=== PATIENT | female | born 1980 | race Caucasian/White ===

== ENCOUNTER → 2016-05-30 | Outpatient (CLI) | payer OTHER | END | disposition home or self-care (01) | LOC: C.LAB 15:33 | PROVIDERS: ATTEND Obstetrics & Gynecology | DX: Z32.00 Encounter for pregnancy test, result unknown (principal) ==

== ENCOUNTER → 2016-06-04 | Outpatient (CLI) | payer OTHER | END | disposition home or self-care (01) | LOC: C.LAB 07:54 | PROVIDERS: ATTEND Obstetrics & Gynecology | DX: O20.0 Threatened abortion (principal); Z3A.00 Weeks of gestation of pregnancy not specified ==

== ENCOUNTER → 2016-06-06 | Outpatient (CLI) | payer OTHER | END | disposition home or self-care (01) | LOC: C.LAB 07:51 | PROVIDERS: ATTEND Obstetrics & Gynecology | DX: O20.0 Threatened abortion (principal) ==

== ENCOUNTER → 2016-07-01 | Outpatient (CLI) | payer OTHER ==
[~2016-07-01] MED LIST: IBUP-1050 PO; PRENTAB26 PO
== END | disposition home or self-care (01) ==
LOC: C.LABPVFM 11:44
PROVIDERS: ATTEND Obstetrics & Gynecology
DX: O20.0 Threatened abortion (principal)

== ENCOUNTER → 2016-07-17 | Outpatient (CLI) | payer OTHER | END | disposition home or self-care (01) | LOC: C.LAB 10:04 | PROVIDERS: ATTEND Obstetrics & Gynecology | DX: N92.6 Irregular menstruation, unspecified (principal) ==

== ENCOUNTER → 2016-07-19 | Outpatient (CLI) | payer OTHER | END | disposition home or self-care (01) | LOC: C.LAB 11:28 | PROVIDERS: ATTEND Obstetrics & Gynecology | DX: O02.81 Inappropriate change in quantitative human chorionic gonadotropin (hCG) in early pregnancy (principal); Z3A.00 Weeks of gestation of pregnancy not specified ==

== ENCOUNTER → 2016-07-26 | Outpatient (CLI) | payer OTHER | END | disposition home or self-care (01) | LOC: C.LABBFT 07:54 | PROVIDERS: ATTEND Obstetrics & Gynecology | DX: O02.81 Inappropriate change in quantitative human chorionic gonadotropin (hCG) in early pregnancy (principal) ==

== ENCOUNTER → 2016-08-01 | Outpatient (CLI) | payer OTHER | END | disposition home or self-care (01) | LOC: C.LAB 07:51 | PROVIDERS: ATTEND Obstetrics & Gynecology | DX: O09.299 Supervision of pregnancy with other poor reproductive or obstetric history, unspecified trimester (principal); Z3A.00 Weeks of gestation of pregnancy not specified ==

== ENCOUNTER → 2016-08-05 | Outpatient (CLI) | payer OTHER | END | disposition home or self-care (01) | LOC: C.LAB 08:16 | PROVIDERS: ATTEND Obstetrics & Gynecology | DX: O09.299 Supervision of pregnancy with other poor reproductive or obstetric history, unspecified trimester (principal); Z3A.00 Weeks of gestation of pregnancy not specified ==

== ENCOUNTER → 2016-08-08 | Outpatient (CLI) | payer OTHER ==
[2016-08-08 17:39] LABS: BASO % 0.4 %; BASO ABS # 0.04 K/uL (0-0.2); COMPLETE YES; EOS % 1.8 %; HEMATOCRIT 40.2 % (37-47); IG% 0.1 %; LYMPH % 32.3 %; LYMPH ABS # 3.31 K/uL (1.2-3.4); MEAN CELL VOLUME 91.6 fL (80-100); MEAN CORPUSCULAR HEMOGLOBIN 30.5 pg (25-34); MEAN CORPUSCULAR HGB CONC 33.3 g/dl (32-36); MEAN PLATELET VOLUME 10.9 fL (7.4-10.4); MONO % 8.1 %; NEUT % 57.3 %; PLATELET COUNT 312 K/uL (130-400); RED BLOOD COUNT 4.39 M/uL (4.2-5.4); WHITE BLOOD COUNT 10.26 K/uL (4.8-10.8)
[2016-08-08 18:01] LABS: ALT/SGPT 21 U/L (12-78); BLOOD UREA NITROGEN 13 mg/dl (7-18); CREATININE 0.82 mg/dl (0.60-1.20)
[2016-08-08 18:03] LABS: ALKALINE PHOSPHATASE 89 U/L (45-117); AST/SGOT 12 U/L (15-37)
== END | disposition home or self-care (01) ==
LOC: C.LAB1850 16:45
PROVIDERS: ATTEND Obstetrics & Gynecology
DX: O00.90 Unspecified ectopic pregnancy without intrauterine pregnancy (principal)

== ENCOUNTER → 2016-08-13 | Outpatient (CLI) | payer OTHER | END | disposition home or self-care (01) | LOC: C.LAB 08:05 | PROVIDERS: ATTEND Obstetrics & Gynecology | DX: O00.90 Unspecified ectopic pregnancy without intrauterine pregnancy (principal) ==

== ENCOUNTER → 2016-08-16 | Outpatient (CLI) | payer OTHER | END | disposition home or self-care (01) | LOC: C.LAB 07:53 | PROVIDERS: ATTEND Obstetrics & Gynecology | DX: O00.90 Unspecified ectopic pregnancy without intrauterine pregnancy (principal) ==

== ENCOUNTER → 2016-08-23 | Outpatient (CLI) | payer OTHER ==
[2016-08-23 10:01] LABS: BASO % 0.4 %; BASO ABS # 0.03 K/uL (0-0.2); COMPLETE YES; EOS % 2.6 %; HEMATOCRIT 40.7 % (37-47); IG% 0.3 %; LYMPH ABS # 2.53 K/uL (1.2-3.4); MEAN CELL VOLUME 93.3 fL (80-100); MEAN CORPUSCULAR HGB CONC 32.2 g/dl (32-36); MEAN PLATELET VOLUME 10.9 fL (7.4-10.4); NEUT % 52.7 %; PLATELET COUNT 292 K/uL (130-400); RED BLOOD COUNT 4.36 M/uL (4.2-5.4); WHITE BLOOD COUNT 7.02 K/uL (4.8-10.8)
[2016-08-23 10:10] LABS: ALT/SGPT 37 U/L (12-78); BLOOD UREA NITROGEN 13 mg/dl (7-18)
[2016-08-23 10:13] LABS: ALKALINE PHOSPHATASE 85 U/L (45-117); AST/SGOT 17 U/L (15-37)
== END | disposition home or self-care (01) ==
LOC: C.LAB 07:50
PROVIDERS: ATTEND Obstetrics & Gynecology
DX: O00.90 Unspecified ectopic pregnancy without intrauterine pregnancy (principal)

== ENCOUNTER → 2016-08-30 | Outpatient (CLI) | payer OTHER | END | disposition home or self-care (01) | LOC: C.LAB 07:55 | PROVIDERS: ATTEND Obstetrics & Gynecology | DX: O00.90 Unspecified ectopic pregnancy without intrauterine pregnancy (principal) ==

== ENCOUNTER → 2016-11-06 | Outpatient (CLI) | payer OTHER ==
--- NOTE | 2016-11-06 11:34 | HISTORY & PHYSICAL EXAMINATION ---
DATE OF ADMISSION: 11/06/2016 PREOPERATIVE DIAGNOSIS: Secondary infertility, status post ectopic . POSTOPERATIVE DIAGNOSES: Same plus bilateral fallopian tube spill plus uterine synechiae. SURGEON: Edd Mackey MD INDICATIONS: The patient is a 36-year-old G2, P1 female with a history of a traumatic D and E and ectopic treated with methotrexate. FINDINGS: External genitalia, normal. Cervix large ____ with a tear extending 2 cm cephalad at 11:00. Normal fill and spill of the fallopian tubes. Uterine synechiae partially obscuring the left cornua. COMPLICATIONS: None. The patient tolerated the procedure well. See formal radiology.
--- NOTE | 2016-11-06 11:54 | DIAGNOSTIC IMAGING REPORT ---
HYSTEROSALPINGOGRAM CLINICAL HISTORY: 36 years-old Female with FERTILITY, HX OF ETOPIC "DR SMITH TO DO*. FLUOROSCOPY TIME: 0.7 minutes. 5 images. TECHNIQUE: Hysterosalpingogram performed in conjunction with the [employer] department. Radiology was present to provide fluoroscopy. FINDINGS: The endometrial canal appears normal in size and morphology. There is a small focal contour abnormality/filling defect in the region of the left uterine horn which persists on all the images. No additional endometrial contour abnormalities or filling defects. There is opacficiation of the fallopian tubes with bilateral spillage into the peritoneal cavity. IMPRESSION: 1. Focal small nonspecific filling defect of the left uterine horn persists on all of the images and could be correlated with pelvic ultrasound and/or sonohysterography. 2. There is contrast spillage into the peritoneum bilaterally confirming bilateral fallopian tube patency. The above report was generated using voice recognition software. It may contain grammatical, syntax or spelling errors. Electronically signed by: Nir Meza M.D. 11/06/2016 11:52 AM Dictated Date/Time: 11/06/2016 11:49 AM
--- NOTE | 2016-11-19 09:18 | OPERATIVE REPORT ---
DATE OF OPERATION: 11/06/2016 PREOPERATIVE DIAGNOSIS: Secondary infertility. POSTOPERATIVE DIAGNOSIS: Same plus Asherman syndrome. PROCEDURE PERFORMED: Hystersalpingogram. SURGEON: Edd Gonzales. ANESTHESIOLOGIST: Jose Daniel Meza D.O. INDICATIONS FOR PROCEDURE: The patient is a 36-year-old white G2, P0 female with a history of recent ectopic and a history of a traumatic D&E. FINDINGS: BUS and external genitalia normal. Cervix appears parous with a laceration at 10:00 that is well healed. On instillation of the dye the uterus filled easily. Both tubes filled and spilled. The region of the ectopic on the right side shows no filling defect. However, there is a consistent focal defect in the left cornual area consistent with synechiae. This is the [id number] time I have dictated and signed this report I attest to the content of the Intraoperative Record and any orders documented therein. Any exceptions are noted below. MTDD
== END | disposition home or self-care (01) ==
LOC: C.RAD 10:13
PROVIDERS: ATTEND Obstetrics & Gynecology
DX: Z31.41 Encounter for fertility testing (principal)

== ENCOUNTER → 2017-01-29 | Outpatient (CLI) | payer OTHER | END | disposition home or self-care (01) | LOC: C.LAB1850 16:23 | PROVIDERS: ATTEND Obstetrics & Gynecology | DX: Z87.59 Personal history of other complications of pregnancy, childbirth and the puerperium (principal) ==

== ENCOUNTER → 2017-01-31 | Outpatient (CLI) | payer OTHER | END | disposition home or self-care (01) | LOC: C.LAB 17:30 | PROVIDERS: ATTEND Obstetrics & Gynecology | DX: O09.299 Supervision of pregnancy with other poor reproductive or obstetric history, unspecified trimester (principal) ==

== ENCOUNTER → 2017-02-20 | Day surgery (SDC) | payer OTHER ==
[2017-01-24 13:54] VITALS: Ht 174 cm; Wt 104.5 kg
[~2017-02-20] VITALS: Ht 174 cm; Wt 104.5 kg
[~2017-02-20] MED LIST changes: +ATROPINE SULFATE 0.1 MG/ML 5ML SYR IV PRN; +DEXAMETHASONE SOD INJ 4 MG/ML VIAL ONE; +EpHEDrine SULFATE INJ 50 MG/ML AMP IV PRN; +FENTANYL CITRATE INJ 50 MCG/1 ML 2 ML VIAL IV PRN; +FENTANYL CITRATE INJ 50 MCG/1 ML 2 ML VIAL ONE; +IBUPROFEN 600 MG TAB PO PRN; +KETOROLAC TROMETHAMINE 30 MG/ML VIAL IV. PRN; +KETOROLAC TROMETHAMINE 30 MG/ML VIAL ONE; +LACTATED RINGER'S 1000ML 1,000 ML IV SCH; +LIDOCAINE HCL 2% 2 ML VIAL (20MG/ML) ONE; +METOCLOPRAMIDE HCL INJ 5 MG/ML 2 ML VIAL IV PRN; +MIDAZOLAM HCL 1 MG/ML 2ML VIAL ONE; +ONDANSETRON INJ 2 MG/ML 2 ML VIAL IV PRN; +ONDANSETRON INJ 2 MG/ML 2 ML VIAL ONE; +OXYCODONE/ACETAMINOPHEN 5-325 TAB ONE; +OXYCODONE/ACETAMINOPHEN 5-325 TAB PO PRN; +PROPOFOL IV EMULSION 10 MG/ML 20 ML VIAL IV ONE; +SODIUM CHLORIDE 0.9% 1000ML 1,000 ML IV SCH
--- NOTE | 2017-02-20 09:45 | History & Physical Bridge - [place] ---
H&P Re-Evaluation Bridge Note: I have examined the patient, reviewed the History & Physical and in the interval since the performance of the History & Physical I have noted the following changes of clinical significance: No changes noted
--- NOTE | 2017-02-20 10:33 | [facility] Post Operative Brief Note ---
Immediate Operative Summary Operative Date Feb 20, 2017. Pre-Operative Diagnosis Asherman Sydrome Post-Operative Diagnosis Same Procedure(s) Performed Dilatation And Curettage, Hysteroscopy Surgeon Dr. Bridgett Chandra Head Of Biology Surgeon(s) none Estimated Blood Loss 5 cc Findings NSS deficit 15cc. During vaginal prep, a 2cm x 0.5cm piece of white paper was found in the vagina and removed. Uterus sounded to 9cm. Hysteroscopy showed thickened endometrium with a narrow "tunnel" created by bands of tissue that partially obscured the L fallopian tube ostium at the beginning of the case. After curettage, which obtained copious material, the bands of tissue had been removed and the ostia on both sides were fully visible. Specimens A. Endometrial Currettings Complication(s) None Disposition Recovery Room / PACU
[2017-02-20 11:05] VITALS: TEMP 37.4
--- NOTE | 2017-02-20 11:16 | Anesthesia Progress Nt - [facility] ---
Anesthesia Post Op Note Date & Time Feb 20, 2017 at 11:16 Vital Signs Pain Intensity: 4 Vital Signs Past 12 Hours Date Time Temp Pulse Resp B/P (MAP) Pulse Ox O2 Delivery O2 Flow Rate FiO2 02/20/17 11:05 37.4 53 18 119/81 (94) 98 Room Air 02/20/17 11:00 36.8 02/20/17 10:55 56 22 121/77 (83) 98 02/20/17 10:55 56 22 02/20/17 10:50 52 18 02/20/17 10:50 52 18 115/77 (82) 99 02/20/17 10:45 Room Air 02/20/17 10:45 55 15 02/20/17 10:45 56 15 113/83 (97) 100 02/20/17 10:40 59 14 02/20/17 10:40 58 14 118/81 (91) 100 02/20/17 10:37 118/74 (83) 02/20/17 10:35 36.4 68 16 118/74 99 Diffusion Mask 5 02/20/17 09:05 37.3 75 16 121/83 (96) 96 Room Air Notes Mental Status: alert / awake / arousable, participated in evaluation Pt Amnestic to Procedure: Yes Nausea / Vomiting: adequately controlled Pain: adequately controlled Airway Patency, RR, SpO2: stable & adequate BP & HR: stable & adequate Hydration State: stable & adequate Anesthetic Complications: no major complications apparent
--- NOTE | 2017-02-20 11:24 | OPERATIVE REPORT ---
DATE OF OPERATION: 02/20/2017 PREOPERATIVE DIAGNOSIS: Asherman syndrome. POSTOPERATIVE DIAGNOSIS: Same. PROCEDURE: D&C, hysteroscopy. SURGEON: Dr. Chandra. SENIOR DATA DEVELOPER: None. ESTIMATED BLOOD LOSS: 5 mL FINDINGS: Normal saline solution deficit at the end of procedure, 15 mL. During the vaginal prep a 2 x 0.5 cm piece of white paper was found in the vagina and removed. Uterus sounded to 9 cm. Hysteroscopy showed thickened endometrium with a narrow tunnel created by bands of tissue that partially obscured the left fallopian tube ostium at the beginning of the case. After curettage, which obtained copious material, the bands of tissue had been removed and the ostia on both sides were fully visible. SPECIMENS: Endometrial curettings. COMPLICATIONS: None. DISPOSITION: Stable to recovery room. DESCRIPTION: Jillian was placed on the table in the dorsal lithotomy position, prepped and draped in standard sterile fashion and a hard time-out was taken prior to proceeding. The bladder was emptied of urine via straight catheterization for approximately 400 mL of clear yellow. Shetty and weighted specula were introduced to the vagina to allow the cervix to be identified. The anterior lip of the cervix does have a notch noted at about 11 o'clock position consistent with prior injury. A single tooth tenaculum was used to grasp the anterior lip. The uterus was then gently sounded to 9 cm of depth. The cervix was then serially dilated to allow passage of the hysteroscope. A 5-mm hysteroscope was introduced to the fundus and used to look around the endometrial cavity. The right ostium was seen easily. The left ostium was partially obscured by bands of tissue, which created a narrow tunnel partially obscuring that ostium. There was additionally a thickened fluffy-appearing endometrium throughout the cavity. The scope was withdrawn and a sharp curette was introduced and this was used to gently curette all saenz of the uterus. Copious tissue was obtained. Special attention was also paid to curetting of the left tubal ostium area. After good cry was felt in all areas, the curette was withdrawn and the hysteroscope was reintroduced. The cavity was seen to be smooth throughout and both ostia were easily visualized including the left ostium as the bands of tissue, which had previously obscured were now seen to be well removed. Having restored the cavity to a normal shape, the procedure was brought to completion by removal of all instruments and transferred the patient in stable condition to PACU. I attest to the content of the Intraoperative Record and any orders documented therein. Any exception s are noted below.
[2017-02-20 11:33] VITALS: BP 124/82; PULSE 58; O2SAT 100
== END | disposition home or self-care (01) ==
LOC: X.SURG 08:54
PROVIDERS: ATTEND Obstetrics & Gynecology
DX: N85.6 Intrauterine synechiae (principal)

== ENCOUNTER → 2017-04-07 | Outpatient (CLI) | payer OTHER ==
[~2017-04-07] MED LIST changes: -ATROPINE SULFATE 0.1 MG/ML 5ML SYR IV PRN; -DEXAMETHASONE SOD INJ 4 MG/ML VIAL ONE; -EpHEDrine SULFATE INJ 50 MG/ML AMP IV PRN; -FENTANYL CITRATE INJ 50 MCG/1 ML 2 ML VIAL IV PRN; -FENTANYL CITRATE INJ 50 MCG/1 ML 2 ML VIAL ONE; -IBUPROFEN 600 MG TAB PO PRN; -KETOROLAC TROMETHAMINE 30 MG/ML VIAL IV. PRN; -KETOROLAC TROMETHAMINE 30 MG/ML VIAL ONE; -LACTATED RINGER'S 1000ML 1,000 ML IV SCH; -LIDOCAINE HCL 2% 2 ML VIAL (20MG/ML) ONE; -METOCLOPRAMIDE HCL INJ 5 MG/ML 2 ML VIAL IV PRN; -MIDAZOLAM HCL 1 MG/ML 2ML VIAL ONE; -ONDANSETRON INJ 2 MG/ML 2 ML VIAL IV PRN; -ONDANSETRON INJ 2 MG/ML 2 ML VIAL ONE; -OXYCODONE/ACETAMINOPHEN 5-325 TAB ONE; -OXYCODONE/ACETAMINOPHEN 5-325 TAB PO PRN; -PROPOFOL IV EMULSION 10 MG/ML 20 ML VIAL IV ONE; -SODIUM CHLORIDE 0.9% 1000ML 1,000 ML IV SCH
== END | disposition home or self-care (01) ==
LOC: C.LAB 13:02
PROVIDERS: ATTEND Obstetrics & Gynecology
DX: O09.299 Supervision of pregnancy with other poor reproductive or obstetric history, unspecified trimester (principal)

== ENCOUNTER → 2017-04-09 | Outpatient (CLI) | payer OTHER | END | disposition home or self-care (01) | LOC: C.LAB 12:49 | PROVIDERS: ATTEND Obstetrics & Gynecology | DX: O03.9 Complete or unspecified spontaneous abortion without complication (principal) ==

== ENCOUNTER → 2017-05-12 | Outpatient (CLI) | payer OTHER ==
[2017-05-12 09:26] LABS: HEMATOCRIT 39.8 % (37-47); HEMOGLOBIN 13.4 g/dL (12.0-16.0); MEAN CELL VOLUME 91.3 fL (80-100); MEAN CORPUSCULAR HEMOGLOBIN 30.7 pg (25-34); MEAN CORPUSCULAR HGB CONC 33.7 g/dl (32-36); MEAN PLATELET VOLUME 10.4 fL (7.4-10.4); PLATELET COUNT 320 K/uL (130-400); RED CELL DISTRIBUTION WIDTH SD 43.5 fL (36.4-46.3); WHITE BLOOD COUNT 6.24 K/uL (4.8-10.8)
[2017-05-12 09:42] LABS: HEMOGLOBIN A1C 5.3 % (4.5-5.6)
[2017-05-12 09:57] LABS: ALBUMIN 3.7 gm/dl (3.4-5.0); ALT/SGPT 20 U/L (12-78); AST/SGOT 12 U/L (15-37); BLOOD UREA NITROGEN 12 mg/dl (7-18); CREATININE 0.77 mg/dl (0.60-1.20); GLUCOSE,FASTING 88 mg/dl (70-99)
[2017-05-12 10:05] LABS: LUTEINIZING HORMONE 5.15 IU/L; PROLACTIN 7.51 ng/mL; TESTOSTERONE,TOTAL 28.1 ng/dl
[2017-05-12 10:06] LABS: FOLLICLE STIMULAT HORMONE 8.16 IU/L
[2017-05-12 10:07] LABS: ALKALINE PHOSPHATASE 97 U/L (45-117); TOTAL PROTEIN 7.3 gm/dl (6.4-8.2)
[2017-05-12 10:44] LABS: HEP C IGG 13 YRS+OLDER_RFLX NEG (NEG)
== END | disposition home or self-care (01) ==
LOC: C.LAB 07:30
PROVIDERS: ATTEND Specialist
DX: Z31.41 Encounter for fertility testing (principal); E28.2 Polycystic ovarian syndrome; N96 Recurrent pregnancy loss

== ENCOUNTER → 2017-06-09 | Outpatient (CLI) | payer OTHER | END | disposition home or self-care (01) | LOC: C.LAB 07:43 | PROVIDERS: ATTEND Specialist | DX: O09.00 Supervision of pregnancy with history of infertility, unspecified trimester (principal) ==

== ENCOUNTER → 2017-06-11 | Outpatient (CLI) | payer OTHER | END | disposition home or self-care (01) | LOC: C.LAB 07:13 | PROVIDERS: ATTEND Specialist | DX: O09.00 Supervision of pregnancy with history of infertility, unspecified trimester (principal); Z3A.00 Weeks of gestation of pregnancy not specified ==

== ENCOUNTER → 2017-06-13 | Outpatient (CLI) | payer OTHER | END | disposition home or self-care (01) | LOC: C.LAB 07:22 | PROVIDERS: ATTEND Specialist | DX: O09.00 Supervision of pregnancy with history of infertility, unspecified trimester (principal) ==

== ENCOUNTER → 2017-07-07 | Outpatient (CLI) | payer OTHER | END | disposition home or self-care (01) | LOC: C.LABSPEC 10:47 | PROVIDERS: ATTEND Obstetrics & Gynecology | DX: O09.521 Supervision of elderly multigravida, first trimester (principal) ==

== ENCOUNTER → 2017-07-15 | Outpatient (CLI) | payer OTHER ==
[2017-07-15 15:31] LABS: BASO % 0.2 %; BASO ABS # 0.02 K/uL (0-0.2); EOS % 1.9 %; EOS ABS # 0.22 K/uL (0-0.5); HEMATOCRIT 36.8 % (37-47); HEMOGLOBIN 13.1 g/dL (12.0-16.0); IG# 0.02 K/uL (0.00-0.02); LYMPH % 21.1 %; LYMPH ABS # 2.46 K/uL (1.2-3.4); MEAN CELL VOLUME 87.2 fL (80-100); MEAN CORPUSCULAR HGB CONC 35.6 g/dl (32-36); MEAN PLATELET VOLUME 11.1 fL (7.4-10.4); MONO ABS # 0.82 K/uL (0.11-0.59); NEUT % 69.6 %; NEUT ABS # 8.14 K/uL (1.4-6.5); PLATELET COUNT 314 K/uL (130-400); RED CELL DISTRIBUTION WIDTH CV 13.2 % (11.5-14.5); RED CELL DISTRIBUTION WIDTH SD 42.4 fL (36.4-46.3); WHITE BLOOD COUNT 11.68 K/uL (4.8-10.8)
== END | disposition home or self-care (01) ==
LOC: C.LAB1850 14:32
PROVIDERS: ATTEND Obstetrics & Gynecology
DX: O09.521 Supervision of elderly multigravida, first trimester (principal); Z3A.00 Weeks of gestation of pregnancy not specified

== ENCOUNTER → 2017-11-06 | Outpatient (CLI) | payer OTHER ==
[~2017-11-06] MED LIST changes: +ASPI-232 PO; +CHOL20009; +ENOX1INJ9 SQ; -IBUP-1050 PO
== END | disposition home or self-care (01) ==
LOC: C.LAB1850 10:58
PROVIDERS: ATTEND Internal Medicine
DX: Z00.00 Encounter for general adult medical examination without abnormal findings (principal)